=== PATIENT | female | born 1980 | race Caucasian/White ===

== ENCOUNTER 2019-03-27 14:34 | Emergency (ER) | payer OTHER ==
[2019-03-27] MEDS ORDERED: NORMAL SALINE 1000 ML 1,000 ML IV ONE (15:24)
[2019-03-27] MEDS ORDERED: ONDANSETRON HCL INJ/PF 4 MG/2 ML SDV IV ONE (15:24)
--- NOTE | 2019-03-27 15:25 | ER Document Report ---
ED Medical Screen (RME) - General Chief Complaint: Abdominal Pain Stated Complaint: DIZZINESS Time Seen by Provider: 03/27/19 15:23 Primary Care Provider: JAVIER TORRE [Primary Care Provider] - Follow up as needed TRAVEL OUTSIDE OF THE [place] IN LAST 30 DAYS: No - HPI Notes: 03/27/19 15:24 Patient is a 38-year-old female with no significant past medical history who presents complaining of intermittent dizziness for the past 3 weeks and nausea/abdominal pain to her right upper quadrant that began yesterday. Pain does not radiate. Patient states that she does have some "mild chest pain" over the past couple days as well but does not radiate. She has had decreased p.o. intake. She is urinating normally. Patient states that she is currently on her menstrual cycle. Denies ORNELAS, fever, neck pain, URI, SOB, dysuria, back pain, or rash. I have treated and performed a rapid initial assessment of this patient. A comprehensive ED assessment and evaluation of the patient, analysis of test results and completion of medical decision making process will be conducted by additional ED providers. PHYSICAL EXAMINATION: GENERAL: Well-appearing, well-nourished and in no acute distress. A&Ox4. Answers questions appropriately. LUNGS: Breath sounds clear to auscultation bilaterally and equal. No wheezes rales or rhonchi. HEART: Regular rate and rhythm without murmurs, rubs, gallops. ABDOMEN: Soft, nondistended abdomen. No guarding, no rebound. Normal bowel sounds present. No CVA tenderness bilaterally. + Right upper quadrant/epigastric tenderness (cannot elicit thorough abd exam w/o bed, however). - Related Data Allergies/Adverse Reactions: No Known Allergies Allergy (Unverified 03/27/19 14:40) Past Medical History Pulmonary Medical History: Reports: Hx Asthma - exercise induced, Hx Bronchitis Renal/ Medical History: Reports: Hx Kidney Stones Past Surgical History: Reports: Hx Section, Hx Orthopedic Surgery - rt knee and rt 4th finger - Immunizations Hx Diphtheria, Pertussis, Tetanus Vaccination: Yes Physical Exam - Vital signs Vitals: Temp Pulse Resp BP Pulse Ox 98.6 F 89 18 151/91 H 99 03/27/19 14:36 03/27/19 14:36 03/27/19 14:36 03/27/19 14:36 03/27/19 14:36 Course - Vital Signs Vital signs: Temp Pulse Resp BP Pulse Ox 98.6 F 89 18 151/91 H 99 03/27/19 14:36 03/27/19 14:36 03/27/19 14:36 03/27/19 14:36 03/27/19 14:36 Doctor's Discharge - Discharge Referrals: LOCALMD,NO [Primary Care Provider] - Follow up as needed
[2019-03-27 16:36] LABS: ABSOLUTE EOSINOPHILS # (AUTO) 0.1 10^3/uL (0.0-0.6); ABSOLUTE MONOCYTES (AUTO) 0.6 10^3/uL (0.1-1.4); ABSOLUTE NEUT (AUTO) 5.5 10^3/uL (1.7-8.2); BASOPHILS % (AUTO) 0.5 % (0-2); EOSINOPHILS % (AUTO) 1.1 % (0-6); HEMATOCRIT 41.8 % (36.0-47.0); HEMOGLOBIN 13.3 g/dL (12.0-15.5); LYMPHOCYTES % (AUTO) 24.3 % (13-45); MEAN CORPUSCULAR HEMOGLOBIN 23.2 pg (27.0-33.4); MEAN CORPUSCULAR HGB CONC 31.9 g/dL (32.0-36.0); MEAN CORPUSCULAR VOLUME 73 fl (80-97); MONOCYTES % (AUTO) 7.4 % (3-13); RED BLOOD COUNT 5.74 10^6/uL (3.72-5.28); SEGMENTED NEUTROPHILS % (AUTO) 66.7 % (42-78); TOTAL CELLS COUNTED % (AUTO) 100 %; WHITE BLOOD COUNT 8.2 10^3/uL (4.0-10.5)
[2019-03-27 17:02] LABS: PLATELET COUNT 139 10^3/uL (150-450)
[2019-03-27 18:07] LABS: APPEARANCE,URINE CLEAR; BILIRUBIN,URINE NEGATIVE (NEGATIVE); COLOR,URINE STRAW; GLUCOSE, URINE NEGATIVE (NEGATIVE); KETONES,URINE NEGATIVE (NEGATIVE); LEUKOCYTE ESTERASE,URINE NEGATIVE (NEGATIVE); NITRITE,URINE NEGATIVE (NEGATIVE); PROTEIN,URINE NEGATIVE (NEGATIVE); URINE SPECIFIC GRAVITY 1.004; UROBILINOGEN,URINE NEGATIVE mg/dL (<2.0)
[2019-03-27 18:11] LABS: ALANINE AMINOTRANSFERASE 30 U/L (9-52); ALBUMIN 4.5 g/dL (3.5-5.0); ALKALINE PHOSPHATASE 51 U/L (38-126); ANION GAP 9 (5-19); ASPARTATE AMINO TRANSFERASE 20 U/L (14-36); BILIRUBIN,DIRECT 0.1 mg/dL (0.0-0.4); BILIRUBIN,TOTAL 0.6 mg/dL (0.2-1.3); BLOOD UREA NITROGEN 11 mg/dL (7-20); CALCIUM 9.8 mg/dL (8.4-10.2); CARBON DIOXIDE 27 mmol/L (22-30); CHLORIDE 105 mmol/L (98-107); GLUCOSE 78 mg/dL (75-110); LIPASE 95.8 U/L (23-300); SODIUM 140.9 mmol/L (137-145); TOTAL PROTEIN 7.3 g/dL (6.3-8.2)
--- NOTE | 2019-03-27 18:27 | ER Document Report ---
ED General - General Chief Complaint: Abdominal Pain Stated Complaint: DIZZINESS Time Seen by Provider: 03/27/19 15:23 Primary Care Provider: JAVIER TORRE [NO LOCAL MD] - Follow up as needed Mode of Arrival: Ambulatory Information source: Patient TRAVEL OUTSIDE OF THE [place] IN LAST 30 DAYS: No - HPI Patient complains to provider of: Dizziness, nausea, abdominal pain, lack of appetite Onset: Other - Dizziness for weeks, abdominal pain is now Onset/Duration: Persistent Severity: Moderate Pain Level: 3 Associated symptoms: None. denies: Chills, Fever Exacerbated by: Denies Relieved by: Denies Similar symptoms previously: No Recently seen / treated by doctor: No Notes: 38-year-old female coming in today with chief complaint of dizziness going on for quite a while. Sometimes she will be standing and then she will feel suddenly like she cannot keep her balance. Oftentimes will have to grab onto something to keep her upright and stable. Over the past couple days she said epigastric and right upper quadrant abdominal pain with nausea. Also has had a little bit of pressure in her chest. - Related Data Allergies/Adverse Reactions: No Known Allergies Allergy (Unverified 03/27/19 14:40) Past Medical History - General Information source: Patient - Social History Smoking Status: Never Smoker Chew tobacco use (# tins/day): No Frequency of alcohol use: None Drug Abuse: None Family History: None, Reviewed & Not Pertinent Patient has suicidal ideation: No Patient has homicidal ideation: No Pulmonary Medical History: Reports: Hx Asthma - exercise induced, Hx Bronchitis Renal/ Medical History: Reports: Hx Kidney Stones. Denies: Hx Peritoneal Dialysis Past Surgical History: Reports: Hx Section, Hx Orthopedic Surgery - rt knee and rt 4th finger - Immunizations Hx Diphtheria, Pertussis, Tetanus Vaccination: Yes Review of Systems - Review of Systems Notes: Constitutional: No fevers. No chills. EENT: No eye redness. No eye pain. No ear pain. No sore throat. Cardiovascular: Positive for chest pressure Respiratory: No cough. No shortness of breath. No respiratory distress. Gastrointestinal: Positive for nausea Genitourinary: Atraumatic. No lesions. No pain. No discharge. Musculoskeletal: Atraumatic. No swelling. No deformities. Skin: No rash or lesions. Lymphatic: No swollen lymph nodes. Neurologic: Positive for dizziness Psychiatric: No suicidal or homicidal ideation. Physical Exam - Vital signs Vitals: Temp Pulse Resp BP Pulse Ox 98.6 F 89 18 151/91 H 99 03/27/19 14:36 03/27/19 14:36 03/27/19 14:36 03/27/19 14:36 03/27/19 14:36 - Notes Notes: General: Well-developed, well-nourished. In no acute distress. Non-toxic appearing. Cardiac: Well-perfused. Regular rate and rhythm. No murmurs, rubs, or gallops. Pulmonary: No respiratory distress. No cyanosis. Bilateral lung fiels are clear to auscultation. Abdominal: Slight epigastric and right upper quadrant tenderness. No guarding or rebound. Normal bowel sounds all 4 quadrants HEENT: Head is atraumatic. Conjunctivae not reddened. No tearing. PERRL. EOMI. Orbits atraumatic. No periorbital swelling or erythema. Oropharynx is without erythema, swelling, or exudates. Neck: Supple. No adenopathy. No meningismus. Dermatologic: Warm with good turgor. No rash. Atraumatic. Chest: Atraumatic. No chest wall tenderness to palpation. Musculoskeletal: Moves all extremities well. No range of motion deficits. no muscular or joint tenderness. No paraspinal muscle tenderness. no midline spinal tenderness or step-off. Genitourinary: Examination deferred Neurologic: No gross neurologic deficits. Psychiatric: Normal mood. Course - Re-evaluation Re-evalutation: 03/27/19 18:27 Patient has a lot of symptoms. We will do our best to sort through them. Ultrasound is ordered for the epigastric and right upper quadrant pain. CT ordered for the ongoing issues with dizziness. 03/27/19 20:22 Labs EKG chest x-ray right upper quadrant ultrasound and CT head evaluated. Discussed with patient. No definitive cause for her symptoms. Will give Bentyl and Reglan as needed for abdominal symptoms. Patient will follow with her primary care doctor for further evaluation of the dizziness. - Vital Signs Vital signs: Temp Pulse Resp BP Pulse Ox 98.6 F 89 18 151/91 H 99 03/27/19 14:36 03/27/19 14:36 03/27/19 14:36 03/27/19 14:36 03/27/19 14:36 - Laboratory Result Diagrams: 03/27/19 15:52 03/27/19 17:38 Laboratory results interpreted by me: 03/27/19 03/27/19 15:52 17:52 RBC 5.74 H MCV 73 L MCH 23.2 L MCHC 31.9 L RDW 15.0 H Plt Count 139 L Urine Blood SMALL H Discharge - Discharge Clinical Impression: Nausea, Episode of dizziness Abdominal pain Qualifiers: Abdominal location: unspecified location Qualified Code(s): R10.9 - Unspecified abdominal pain Condition: Good Disposition: HOME, SELF-CARE Instructions: Abdominal Pain ([facility]), Antinausea Medication ([facility]), Antispasmodics ([facility]), Oral Narcotic Medication ([facility]) Additional Instructions: Please follow-up as soon as possible with your primary care provider. You will get a prescription for Reglan which is a wonderful antinausea medication which will also help with your stomach ache. Bentyl works very good for stomach or intestinal spasms. Please use as directed. He will get a 6 count bottle of N orco which is narcotic pain medication which I would only advised to be used for very severe abdominal pain that is not improved with Bentyl. Prescriptions: Metoclopramide HCl [Reglan 10 mg Tablet] 1 tab PO Q6HP PRN #20 tablet PRN Reason: Dicyclomine HCl [Bentyl 20 mg Tablet] 20 mg PO QIDP PRN #20 tablet PRN Reason: Forms: Elevated Blood Pressure Referrals: primary care doctor, your [Other] - Follow up as needed
--- NOTE | 2019-03-27 18:44 | RADIOLOGY REPORT (SQ) ---
EXAM DESCRIPTION: CT HEAD WITHOUT COMPLETED DATE/TIME: 03/27/2019 6:36 pm REASON FOR STUDY: dizziness COMPARISON: None. TECHNIQUE: Axial images acquired through the brain without intravenous contrast. Images reviewed wi th bone, brain and subdural windows. Images stored on PACS. All CT scanners at this facility use dose modulation, iterative reconstruction, and/or weight based d osing when appropriate to reduce radiation dose to as low as reasonably achievable (ALARA). [facility]: Dose Right [facility]: CareDose [facility]: Dose Right [facility]: Teradose 4D [facility]: Smart [email or web address] RADIATION DOSE: CT Rad equipment meets quality standard of care and radiation dose reduction techniq ues were employed. CTDIvol: 53.2 mGy. DLP: 1044 mGy-cm. mGy. LIMITATIONS: None. FINDINGS: VENTRICLES: Normal size and contour. CEREBRUM: No masses. No hemorrhage. No midline shift. No evidence for acute infarction. Normal gra y/white matter differentiation. No areas of low density in the white matter. CEREBELLUM: No masses. No hemorrhage. No alteration of density. No evidence for acute infarction. EXTRAAXIAL SPACES: No fluid collections. No masses. ORBITS AND GLOBE: No intra- or extraconal masses. Normal contour of globe without masses. CALVARIUM: No fracture. PARANASAL SINUSES: No fluid or mucosal thickening. SOFT TISSUES: No mass or hematoma. OTHER: No other significant finding. IMPRESSION: NORMAL BRAIN CT WITHOUT CONTRAST. EVIDENCE OF ACUTE STROKE: NO. COMMENT: Quality ID # [id number]: Final reports with documentation of one or more dose reduction techniques (e.g., Automated exposure control, adjustment of the mA and/or kV according to patient size, use of iterative reconstruction technique) TECHNICAL DOCUMENTATION: JOB ID: [id number] [employer]- All Rights Reserved Reading location - IP/workstation name: [email or web address]
--- NOTE | 2019-03-27 18:50 | RADIOLOGY REPORT (SQ) ---
EXAM DESCRIPTION: CHEST SINGLE VIEW COMPLETED DATE/TIME: 03/27/2019 6:39 pm REASON FOR STUDY: CP COMPARISON: None. EXAM PARAMETERS: NUMBER OF VIEWS: One view. TECHNIQUE: Single frontal radiographic view of the chest acquired. RADIATION DOSE: NA LIMITATIONS: None. FINDINGS: LUNGS AND PLEURA: No opacities, masses or pneumothorax. No pleural effusion. MEDIASTINUM AND HILAR STRUCTURES: No masses. Contour normal. HEART AND VASCULAR STRUCTURES: Heart normal in size. Normal vasculature. BONES: No acute findings. HARDWARE: None in the chest. OTHER: No other significant finding. IMPRESSION: NO ACUTE RADIOGRAPHIC FINDING IN THE CHEST. TECHNICAL DOCUMENTATION: JOB ID: [id number] [employer]- All Rights Reserved Reading location - IP/workstation name: [email or web address]
--- NOTE | 2019-03-27 19:15 | EKG REPORT ---
SEVERITY:- NORMAL ECG - SINUS RHYTHM : Confirmed by: Le Rivera MD 27-Mar-2019 19:15:03
--- NOTE | 2019-03-27 19:43 | RADIOLOGY REPORT (SQ) ---
EXAM DESCRIPTION: U/S ABDOMEN LIMITED W/O DOP COMPLETED DATE/TIME: 03/27/2019 7:01 pm REASON FOR STUDY: epigastric and ruq pain with vomiting COMPARISON: None. TECHNIQUE: Dynamic and static grayscale images acquired of the abdomen and recorded on PACS. Additio nal selected color Doppler and spectral images recorded. LIMITATIONS: None. FINDINGS: PANCREAS: No masses. Visualized pancreatic duct normal caliber. LIVER: No masses. Echotexture normal. LIVER VASCULATURE: Normal directional flow of the main portal vein and hepatic veins. GALLBLADDER: No stones. Normal wall thickness. No pericholecystic fluid. ULTRASOUND-DETECTED GILLIAM'S SIGN: Negative. INTRAHEPATIC DUCTS AND COMMON DUCT: CBD and intrahepatic ducts normal caliber. No filling defects. INFERIOR VENA CAVA: Normal flow. AORTA: No aneurysm identified. RIGHT KIDNEY: Normal size. Normal echogenicity. No solid or suspicious masses. No hydronephros is. No calcifications. PERITONEAL AND RIGHT PLEURAL SPACE: No ascites or effusions. OTHER: No other significant findings. IMPRESSION: NO ACUTE FINDINGS. TECHNICAL DOCUMENTATION: JOB ID: [id number] [employer]- All Rights Reserved Reading location - IP/workstation name: [email or web address]
[2019-03-27] MEDS ORDERED: HYDROCODONE/ACETAMINOPHEN 5-325 MG (6 TAB/ER DISP) PO PRN (20:36)
[2019-03-27 20:52] VITALS: BP 130/82
== END 2019-03-27 20:51 | disposition home or self-care (01) ==
LOC: ER 14:34
DX: R42 Dizziness and giddiness (principal); R10.11 Right upper quadrant pain; R10.13 Epigastric pain; R10.816 Epigastric abdominal tenderness; R10.811 Right upper quadrant abdominal tenderness; R11.0 Nausea; R63.0 Anorexia; R07.89 Other chest pain; J45.909 Unspecified asthma, uncomplicated
CPT/HCPCS: 93005; 99284; 96361; 96374; 36415; 83690; 84443; 85025; 81025; 80053; 81001; 84484; 71045; 76705; 70450; 93010; J2405; J7030